=== PATIENT | male | born 1990 | race Caucasian/White ===

== ENCOUNTER 2017-02-21 09:23 | Emergency (ER) | payer OTHER ==
[~2017-02-21] VITALS: Ht 182.9 cm; Wt 90.7 kg
[~2017-02-21 09:23] MED LIST: AZIT250 PO; Amoxicillin500 MG PO; Bactrim Ds Tab1 EACH PO; CEPH500 PO; Cleocin HCl150 MG PO; ERYT.5TO OD; HYDACE5 PO; IBUP600 PO; IBUP800 PO; OXYACE5T PO; PENVK500 PO; RXERYTOPTH OP; RXOXYACE PO; TRAZ50 PO
[2017-02-21] MEDS ORDERED: PENVK500 PO (11:26)
== END 2017-02-21 11:37 | disposition home or self-care (01) ==
LOC: ER 09:23
DX: K04.7 Periapical abscess without sinus (principal); K02.9 Dental caries, unspecified; F17.200 Nicotine dependence, unspecified, uncomplicated
CPT/HCPCS: 99282